=== PATIENT | female | born 1970 | race Two or more races ===

== ENCOUNTER 2018-04-06 20:53 | Emergency (ER) | payer SELFPAY ==
[~2018-04-06] VITALS: Ht 157.5 cm; Wt 78.5 kg
[2018-04-06 21:37] LABS: Eosinophils # (auto) 0.2 uL; Hemoglobin 12.4 g/dL (12.2-16.2); Monocytes # (auto) 0.5 uL; Nucleated Red Blood Cells % 0.1 %; White Blood Cell 5.7 10^3/uL (4.4-10.8)
[2018-04-06 21:39] LABS: Basophils # (auto) 0 uL; Basophils % (auto) 0.8 % (0.0-2.0); Eosinophils % (auto) 3.4 % (0.0-7.0); Hematocrit 38.1 % (36.0-46.0); Lymphocytes # (auto) 2.5 uL; Mean Corpuscular Hemoglobin 25.3 pg (28.0-32.0); Mean Corpuscular Hgb Conc. 32.5 g/dL (32.0-36.0); Mean Corpuscular Volume 77.9 fL (80.0-100.0); Monocytes % (auto) 8.3 % (0.0-12.0); Neutrophils # (auto) 2.5 uL; Neutrophils % (auto) 43.5 % (37.0-80.0); Platelet Count (auto) 253 10^3/uL (140-450)
[2018-04-06 21:44] LABS: Red Cell Distribution Width 20.5 % (11.8-14.3)
[2018-04-06 21:48] LABS: Albumin 3.6 g/dL (3.4-5.0); Amylase 61 U/L (25-115); Anion Gap 12 (5-15); BUN/Creatinine Ratio 12.5; Blood Urea Nitrogen 9 mg/dL (7-18); Calcium 8.1 mg/dL (8.5-10.1); Carbon Dioxide 23 mmol/L (21-32); Chloride 105 mmol/L (98-107); GFR African American 112 mL/min; GFR Non-African American 92 mL/min; Glucose 100 mg/dL (74-106); Lipase 146 U/L (73-393); Magnesium 2.1 mg/dL (1.6-2.6); Potassium 3.6 mmol/L (3.5-5.1); Sodium 140 mmol/L (136-145)
[2018-04-06 21:53] LABS: Alanine Aminotransferase 27 U/L (13-56); Alkaline Phosphatase 65 U/L (45-117); Aspartate Aminotransferase 22 U/L (15-37); Bilirubin, Total 0.1 mg/dL (0.2-1.0); Total Protein 8.4 g/dL (6.4-8.2)
[2018-04-06 21:57] LABS: INR 0.98 (0.9-1.15); Partial Thromboplastin Time 26.9 sec (23.78-33.04); Prothrombin Time 10.5 sec (9.27-12.13)
[2018-04-06 22:39] LABS: Urine Bacteria FEW /hpf (None Seen); Urine Blood Negative /uL (Negative); Urine Mucus FEW (None Seen); Urine WBC 5 /hpf (0 - 5)
[2018-04-07] MEDS: IOHEXOL 300 MG/ML 100ML BOTTLE IJ ONE ×2 (04:25→04:26)
[2018-04-07 04:34] VITALS: BP 128/76
== END 2018-04-07 05:20 | disposition home or self-care (01) ==
LOC: ER 20:58
DX: N39.0 Urinary tract infection, site not specified (principal)
CPT/HCPCS: 36415; 71046; 74176; 80053; 81001; 81025; 82150; 83690; 83735; 84484; 85025; 85610; 85730; 99284; Q9967

== ENCOUNTER 2021-12-28 10:52 | Emergency (ER) | payer SELFPAY ==
[~2021-12-28] VITALS: Ht 157.5 cm; Wt 75.0 kg
[2021-12-28 12:13] LABS: Urine Bacteria NONE SEEN /hpf (None Seen); Urine Blood 3+ /uL (Negative); Urine Specific Gravity 1.011 (1.001-1.035); Urine WBC 1326 /hpf (0 - 5); Urine WBC Clumps PRESENT /hpf (None Seen)
[2021-12-28 12:23] LABS: Hematocrit 37.9 % (36.0-46.0); Hemoglobin 12.3 g/dL (12.2-16.2); Mean Corpuscular Hemoglobin 27.8 pg (28.0-32.0); Mean Corpuscular Hgb Conc. 32.3 g/dL (32.0-36.0); Mean Corpuscular Volume 85.8 fL (80.0-100.0); Red Blood Cells 4.42 10^6/uL (4.0-5.20); Red Cell Distribution Width 15.3 % (11.8-14.3); White Blood Cell 16.2 10^3/uL (4.4-10.8)
[2021-12-28 12:26] LABS: Potassium 3.8 mmol/L (3.5-5.1)
[2021-12-28] MEDS ORDERED: ONDANSETRON HCL 4 MG/2 ML VIAL IV ONE ×2 (12:30→15:00)
[2021-12-28] MEDS ORDERED: MORPHINE SULFATE 4 MG/ML SYR/VIAL IV ONE ×2 (12:30→15:00)
[2021-12-28 12:31] LABS: BUN/Creatinine Ratio 9.1; Bilirubin, Total 0.4 mg/dL (0.2-1.0); Total Protein 8.6 g/dL (6.4-8.2)
[2021-12-28 13:02] LABS: Basophils % (manual) 0 (0.0-2.0); Blast Cells 0; Metamyelocytes % 0; Myelocytes % 0; Promyelocytes % 0; Reactive Lymphocytes 0
[2021-12-28 14:12] LABS: Band Neutrophils % (manual) 7; Eosinophils % (manual) 2 (0-7); Lymphocytes % (manual) 25 (10.0-50.0); Monocytes % (manual) 11 (0-12)
[2021-12-28] MEDS ORDERED: IOHEXOL 300 MG/ML 100ML BOTTLE IJ ONE ×2 (14:39→14:58)
[2021-12-28] MEDS ORDERED: PIPERACILLIN-TAZO 4.5GM 100 ML IV ONE (15:00)
[2021-12-28] MEDS ORDERED: LACTATED RINGER'S 1,000 ML IV ONE (15:00)
[2021-12-28 15:42] VITALS: BP 115/62
[2021-12-28 19:23] LABS: Albumin 3.7 g/dL (3.4-5.0); Calcium 8.4 mg/dL (8.5-10.1); Potassium 3.2 mmol/L (3.5-5.1)
[2021-12-28 19:25] LABS: Bilirubin, Total 0.6 mg/dL (0.2-1.0)
== END 2021-12-28 23:59 | disposition left against medical advice (07) ==
LOC: ER 10:52
DX: K81.9 Cholecystitis, unspecified (principal); D72.829 Elevated white blood cell count, unspecified
CPT/HCPCS: 36415; 71045; 74177; 76705; 80053; 81001; 83690; 83735; 84484; 84702; 85007; 85027; 96361; 96365; 96375; 99285; J2270; J2405; J2543; Q9967